=== PATIENT | male | born 1965 | race Caucasian/White ===

== ENCOUNTER 2020-06-27 07:31 | Emergency (ER) | payer OTHER, SELFPAY ==
[2020-06-27] VITALS (22 sets, daily range): BP systolic 143–190; BP diastolic 86–113; PULSE 69–89; RESP 15–25; TEMP 36.3; O2SAT 91–98
--- NOTE | ~2020-06-27 | CT_ITS ---
EXAMINATION: CTA chest PE protocol DATE: 06/27/2020 11:02 INDICATION: Hemoptysis. History of COPD. TECHNIQUE: Computed tomography angiography (CTA) of the chest was performed with 100 mL Omnipaque-350 intravenous contrast timed to evaluate the pulmonary arteries. Coronal maximum intensity projection 3D-reconstructions were created by the technologist. Automated exposure control and iterative reconst ruction technique were employed. Exam dose: 1127.14 mGy-cm total exam DLP. COMPARISON: 06/27/2022 view chest FINDINGS: There is moderate diagnostic contrast enhancement of the pulmonary arteries and no evidence of pulmonary embolism. No thoracic aortic aneurysm or dissection. Normal heart size. Trace pericardial fluid. No hilar or mediastinal mass lesion or lymphadenopathy. 4.5 mm nodule of the lingula (series 4 image 68). Mild emphysematous changes are noted. No pulmonary infiltrate or consolidation is detected. There is mild discoid atelectasis or scarring o f the middle lobe and lingula. Small bilateral foramen of [place] fat-containing hernias. Normal adrenal gland morphology. No suspicious osteolytic or osteoblastic lesions are noted. IMPRESSION: No evidence of pulmonary embolism Mild emphysema 4.5 mm lingular pulmonary nodule; consider [address] follow-up Reviewed, dictated and finalized at [facility] Reviewed, dictated and finalized at [facility].
--- NOTE | ~2020-06-27 | XR_ITS ---
EXAMINATION: XR chest 2V DATE: 06/27/2020 09:11 INDICATION: Cough and shortness of breath. TECHNIQUE: PA and lateral views of the chest were obtained. COMPARISON: Chest radiograph dated 02/02/2016 FINDINGS: Unchanged mild atelectasis/scarring at the left lung base. No new airspace opacities, pulmonary edema , pleural effusion or pneumothorax. Heart size is normal with small bilateral paracardial fat pads. M ild thoracic spondylosis. IMPRESSION: 1. Mild left basilar atelectasis/scarring. Reviewed, dictated and finalized at [facility].
--- NOTE | 2020-06-27 07:33 | ED.GENADULT ---
HPI - General Adult General Chief complaint: Upper Respiratory Infection Stated complaint: coughing up blood Time Seen by Provider: 06/27/20 07:33 Source: patient Mode of arrival: ambulatory Limitations: no limitations History of Present Illness HPI narrative: Patient is a 55-year-old male with a history of hypertension, coronary artery disease, COPD who presents for evaluation hemoptysis. Patient states that this morning he noticed his productive cough was red and resembled blood. He denies any streaking or large blood clots, but states that the sputum overall was red. He denies any current fever, chills, congestion. No increased sputum production. No forceful coughing. No current shortness of breath, but continuously struggles with shortness of breath with exertion. He denies lower leg swelling or calf pain. No recent sick contacts. No chest or abdominal pain. No nausea or vomiting. He is not on any anticoagulation. He states most of his physicians are at [facility]. Patient denies any history of cancer in himself, no recent unintended weight loss. Related Data Home Medications Medication Instructions Recorded Confirmed amlodipine 5 mg PO DAILY 06/27/20 aspirin 81 mg PO DAILY 06/27/20 atorvastatin 10 mg PO DAILY 06/27/20 lisinopril 20 mg PO DAILY 06/27/20 Allergies Allergy/AdvReac Type Severity Reaction Status Date / Time No Known Allergies Allergy Unknown Unverified 02/02/16 15:25 Review of Systems Review of Systems: Narrative: CONSTITUTIONAL: Denies fever, chills, or sweats. ENT: Denies rhinorrhea, congestion, sore throat, or otalgia. CARDIOVASCULAR: Denies chest pain, or edema. RESPIRATORY: Reports chronic cough and dyspnea GASTROINTESTINAL: Denies abdominal pain, nausea, vomiting, or diarrhea. GENITOURINARY: Denies dysuria or hematuria. SKIN: Denies rash or itching. MUSCULOSKELETAL: Denies back pain, joint pain, or myalgia. NEUROLOGIC: Denies headache, numbness, or weakness. [facility] Past Medical History Medical History COPD (chronic obstructive pulmonary disease) Hyperlipidemia Hypertension Social History Social History (Updated 06/27/20 @ 07:57 by Leah Shaikh MD) Smoking status: Current every day smoker Tobacco type: cigarettes Alcohol intake: current Alcohol use details: Social Substance use: current Substance use type: marijuana Living arrangements: with family Gender identity (if verbalized by the patient): Male Exam Narrative: Exam Narrative: GENERAL: Awake, alert, conversant, no acute distress HEAD: Normocephalic, atraumatic. EYES: PERRLA and EOMI. ENT: Nares clear, no rhinorrhea or epistaxis. Mucous membranes moist. NECK: Supple. CHEST: No respiratory distress, breathing even and non labored, expiratory wheezing in both lung lisa bilaterally, decreased aeration at the bases HEART: Regular rate, sinus rhythm ABDOMEN: Obese, non distended, non tender EXTREMITIES: Normal range of motion. No edema. SKIN: Warm, dry, no rash. NEURO:No focal deficits. Alert and oriented x3 Course Vital Signs Vital signs: Vital Signs Pulse Rate 80 06/27/20 07:44 Respiratory Rate 20 06/27/20 07:44 Blood Pressure 190/113 H 06/27/20 07:44 Pulse Oximetry 94 06/27/20 07:44 Temperature 36.3 C L 06/27/20 07:46 Pulse Rate 73 06/27/20 12:25 Respiratory Rate 16 06/27/20 12:25 Blood Pressure 143/86 H 06/27/20 12:25 Pulse Oximetry 92 06/27/20 12:25 Medical Decision Making MDM Narrative Medical decision making narrative: Patient presented for evaluation of hemoptysis. At the time of assessment, patient is hypertensive, he does have a history of this. Patient is otherwise stable, does have findings consistent with COPD with expiratory wheezing on exam, patient is in any respiratory distress. Laboratory results show no anemia. No thrombocytopenia. Chest x-ray shows no evidence of mass.
--- NOTE | 2020-06-27 07:53 | ECG_ITS ---
Measurements Intervals [place] Rate: 70 P: 17 FL: 139 QRS: -33 QRSD: 102 T: 56 QT: 404 QTc: 437 Interpretive Statements SINUS RHYTHM LEFT AXIS DEVIATION INCOMPLETE RIGHT BUNDLE BRANCH BLOCK DELAYED PRECORDIAL R/S TRANSITION BORDERLINE ECG Electronically Signed On 06-27-2020 8:24:51 CDT by Cristo Edgar D.O.
[2020-06-27 08:14] LABS: Basophils Absolute Auto 0.1 K/mm3 (0.0-0.1); Basophils Percent Auto 0.8 % (0.2-1.2); Eosinophils Absolute Auto 0.4 K/mm3 (0-0.3); Eosinophils Percent Auto 4.9 % (0-4.4); Hematocrit 50.6 % (42.0-52.0); Hemoglobin 17.1 g/dL (14.0-18.0); Immature Granulocyte Absolute 0.04 K/mm3 (0.00-0.031); Immature Granulocyte Percent A 0.5 % (0-0.5); Lymphocytes Absolute Auto 3.07 K/mm3 (0.9-3.2); Lymphocytes Percent Auto 35.2 % (18.3-44.2); Mean Corpuscular HGB Conc 33.8 g/dl (32-36); Mean Corpuscular Hemoglobin 31.4 pg (26-34); Mean Platelet Volume 11.6 fl (7.4-10.4); Monocytes Absolute Auto 0.8 K/mm3 (0.1-0.6); Monocytes Percent Auto 9.1 % (2.6-8.5); Neutrophils Absolute Auto 4.3 K/mm3 (1.3-6.7); Neutrophils Percent Auto 49.5 % (45.5-73.1); Platelet Count Result 176 k/mm3 (150-375); Red Blood Count 5.44 M/mm3 (4.6-6.20); Red Cell Distribution Width 13.2 % (11.5-14.5); White Blood Count 8.7 K/mm3 (4.5-10.0)
[2020-06-27] MEDS: ALBUTEROL SULFATE NEB 2.5 MG/0.5 ML INH 5 MG INHALATION (08:15)
[2020-06-27] MEDS: IPRATROPIUM BR 0.02% INH SOLN 0.5 MG/2.5 ML VIAL INHALATION (08:15)
[2020-06-27 08:43] LABS: INR 0.9; Prothrombin Time 11.6 Seconds (11.1-14.7)
[2020-06-27 08:44] LABS: Partial Thromboplastin Time 25.8 SECONDS (22.3-36.8)
[2020-06-27 08:46] LABS: D Dimer 0.43 ug/mL (<0.48)
--- NOTE | 2020-06-27 08:59 | PC.NURSE ---
Labs redrawn due to hemolysis.
[2020-06-27 09:13] LABS: Anion Gap 8 mmol/L (8-16); Blood Urea Nitrogen 15 mg/dL (9-20); Calcium 8.7 mg/dL (8.4-10.2); Carbon Dioxide 29 mmol/L (22-30); Chloride 102 mmol/L (98-107); Estimated CRCL calculation 114 ml/min; Estimated Glomerular Filt Rate > 60; Glucose 133 mg/dL (75-110); Potassium 3.8 mmol/L (3.4-5.0); Sodium 139 mmol/L (137-145)
[2020-06-27 09:26] LABS: NT Pro B Type Natriuretic Pept 62 PG/ML (5-100); Troponin I < 0.012 ng/mL (0.000-0.034)
--- NOTE | 2020-06-27 10:01 | PC.NURSE ---
Pt ambulatory around ED nurses station and back to ED Rm 11 (approx 50 meters). Pt c/o slight shortness of breath with ambulating. Pulse oximetry 90-91& and heart rate 90's as well. Dr. Shaikh made aware.
--- NOTE | 2020-06-27 10:48 | PC.NURSE ---
Awaiting CTA testing. Pt status unchanged at present.
--- NOTE | 2020-06-27 11:33 | PC.NURSE ---
Report to SAMUEL Slaughter, to continue care.
== END 2020-06-27 12:40 | disposition home or self-care (01) ==
PROVIDERS: Emergency Provider Emergency Medicine; PCP Family Medicine
DX: J44.1 Chronic obstructive pulmonary disease with (acute) exacerbation (principal); R04.2 Hemoptysis; I10 Essential (primary) hypertension; I25.10 Atherosclerotic heart disease of native coronary artery without angina pectoris; E78.5 Hyperlipidemia, unspecified; Z79.82 Long term (current) use of aspirin; F17.210 Nicotine dependence, cigarettes, uncomplicated; I45.10 Unspecified right bundle-branch block
CPT/HCPCS: 36415; 71046; 71275; 80048; 83880; 84484; 85025; 85380; 85610; 85730; 93005; 94640; 99284; Q9967

== ENCOUNTER 2020-09-17 06:44 | Outpatient (NON) | payer OTHER, SELFPAY ==
[2020-09-18 22:25] LABS: SARS-CoV-2 RNA PCR Negative
== END 2020-09-17 06:45 ==
LOC: ANHCOVIDDT 06:46
PROVIDERS: PCP Family Medicine; Visit Provider Family Medicine
DX: B34.9 Viral infection, unspecified (principal); Z20.828 Contact with and (suspected) exposure to other viral communicable diseases
CPT/HCPCS: 87635; C9803; U0003

== ENCOUNTER 2021-04-01 23:00 | Emergency (ER) | payer OTHER, SELFPAY ==
--- NOTE | ~2021-04-01 | CT_ITS ---
EXAMINATION: CT abdomen pelvis wo con DATE: 04/02/2021 00:38 INDICATION: Diarrhea. Low abdominal pain. TECHNIQUE: Computed tomography (CT) of the abdomen and pelvis was performed without intravenous contr ast. Automated exposure control and iterative reconstruction technique were employed. The dose-length product was 1621.85 mGy-cm. COMPARISON: CT abdomen and pelvis 03/17/2013 FINDINGS: The visualized portions of the lung bases demonstrate mild atelectasis. No pleural effusion . The heart size is normal. No pericardial effusion. The liver, gallbladder, spleen, pancreas, adrena l glands, and kidneys are normal. There is no urolithiasis. There is diverticulosis of the colon with out evidence of diverticulitis. There are no dilated loops of bowel. The appendix is normal. There is an umbilical hernia containing fat. There are no pathologically enlarged lymph nodes. There is no fr ee intraperitoneal fluid. There is mild thoracolumbar spondylosis. IMPRESSION: 1. Umbilical hernia containing fat. Reviewed, dictated and finalized at [facility].
[2021-04-01 23:01] VITALS: BP 178/92; PULSE 89; RESP 26; TEMP 36.4; O2SAT 94
--- NOTE | 2021-04-01 23:41 | ED.GENADULT ---
HPI - General Adult General Chief complaint: Unspecified Stated complaint: bad pain in my lower back with diarrhea Time Seen by Provider: 04/01/21 23:13 Source: RN notes reviewed History of Present Illness HPI narrative: Patient presents to emergency department from home for lower back pain and diarrhea. Patient states proximally 1 week ago he developed pain in his bilateral lower back states he has had a history of recurrent lower back problems for the past several years states he usually go away after 1 to 2 days he states this episode is continued for the past week states pain is worse with twisting and bending pain does not radiate he denies any numbness or tingling in the lower extremities or bowel or bladder incontinence he states he also developed diarrhea at this time which she continues to have is present to 3 loose stools a day denies any fevers or chills chest pain shortness of breath abdominal pain nausea vomiting or any other symptoms. Denies any direct trauma or injury to the back. States he took no pain medication at home Related Data Home Medications Medication Instructions Recorded Confirmed amlodipine 5 mg PO DAILY 06/27/20 aspirin 81 mg PO DAILY 06/27/20 atorvastatin 10 mg PO DAILY 06/27/20 lisinopril 20 mg PO DAILY 06/27/20 bupropion HCl 150 mg 24 hr tablet, 150 mg PO QAM 10/10/20 extended release Allergies Allergy/AdvReac Type Severity Reaction Status Date / Time No Known Allergies Allergy Unknown Verified 04/01/21 23:04 Review of Systems Review of Systems: Narrative: Gen.: Denies fevers or chills ENT: Denies congestion Respiratory: Denies shortness of breath or cough CV: Denies chest pain or palpitations GI: Denies abdominal pain nausea, emesis reports diarrhea denies burning, urgency, frequency or hematuria Musculoskeletal: See HPI Neuro: Denies numbness, tingling, weakness or focal weakness Skin: Denies rash Except as documented, all other systems reviewed and negative [facility] Past Medical History Medical History (Updated 04/02/21 @ 02:19 by Sami Anton DO) COPD (chronic obstructive pulmonary disease) Hyperlipidemia Hypertension Social History Social History Smoking status: Current every day smoker Tobacco type: cigarettes Alcohol intake: current Alcohol use details: Social Substance use: current Substance use type: marijuana Gender identity (if verbalized by the patient): Male Exam Narrative: Exam Narrative: APPEARANCE: No acute distress, nontoxic, resting in bed Eyes: EOMI HEENT: Normocephalic, atraumatic, CV: Regular rate and rhythm without murmur RESPIRATORY: No respiratory distress. Clear to auscultation bilaterally. Abdomen: Soft and nontender, no rebound or guarding periumbilical hernia that is soft and easily reducible MUSCULOSKELETAl: Moves all extremities, no clubbing cyanosis or edema Back: No midline lumbar tenderness to palpation or step-off, tender to palpation over bilateral paravertebral muscles L3-5 , pain increased with forward flexion NEURO: Awake and alert. Following commands, speech normal, no focal deficits, muscle strength 5 out of 5 bilateral lower extremities, bilateral patellar reflex 2+ SKIN:: Warm, dry. Normal Color no rash or lesions Course Course Emergency Course: Patient refusing any IV fluids or medications will give p.o. ibuprofen Discussed with patient results of workup and diagnosis. Discussed need for follow-up with primary care, proper use of medication, and reasons to return to the emergency department. Patient understands and agrees to current treatment plan Vital Signs Vital signs: Vital Signs Temperature 97.5 F L 04/01/21 23:01 Pulse Rate 89 04/01/21 23:01 Respiratory Rate 26 H 04/01/21 23:01 Blood Pressure 178/92 H 04/01/21 23:01 Pulse Oximetry 94 04/01/21 23:01 Temperature 97.5 F L 04/01/21 23:01 Pulse Rate 80 04/02/21 01:51
[2021-04-02 00:13] LABS: Basophils Absolute Auto 0.1 K/mm3 (0.0-0.1); Basophils Percent Auto 0.6 % (0.2-1.2); Eosinophils Absolute Auto 0.3 K/mm3 (0-0.3); Eosinophils Percent Auto 3.6 % (0-4.4); Hemoglobin 16.2 g/dL (14.0-18.0); Immature Granulocyte Absolute 0.02 K/mm3 (0.00-0.031); Immature Granulocyte Percent A 0.2 % (0-0.5); Lymphocytes Absolute Auto 2.33 K/mm3 (0.9-3.2); Mean Corpuscular HGB Conc 32.4 g/dl (32-36); Mean Corpuscular Hemoglobin 30.6 pg (26-34); Mean Corpuscular Volume 94.5 fl (80-100); Mean Platelet Volume 11.2 fl (7.4-10.4); Monocytes Absolute Auto 0.9 K/mm3 (0.1-0.6); Monocytes Percent Auto 10.4 % (2.6-8.5); Neutrophils Percent Auto 58.2 % (45.5-73.1); Platelet Count Result 185 k/mm3 (150-375); Red Blood Count 5.29 M/mm3 (4.6-6.20); Red Cell Distribution Width 13.2 % (11.5-14.5); White Blood Count 8.6 K/mm3 (4.5-10.0)
[2021-04-02 00:21] LABS: Lipase 94 U/L (23-300)
[2021-04-02 00:22] LABS: Alanine Aminotransferase 21 U/L (4-50); Albumin Level 4.1 g/dL (3.5-5.1); Alkaline Phosphatase 82 U/L (38-126); Anion Gap 10 mmol/L (8-16); Aspartate Amino Transferase 22 U/L (17-59); Bilirubin,Total 0.3 mg/dL (0.2-1.3); Blood Urea Nitrogen 17 mg/dL (9-20); Calcium 8.9 mg/dL (8.4-10.2); Carbon Dioxide 24 mmol/L (22-30); Chloride 105 mmol/L (98-107); Estimated CRCL calculation 145 ml/min; Estimated Glomerular Filt Rate > 60; Glucose 144 mg/dL (75-110); Sodium 139 mmol/L (137-145)
--- NOTE | 2021-04-02 00:24 | PC.NURSE ---
Pt ambulatory to ED c/o lower back pain that is worse with movement and changing position. pt also c/o diarrhea that has been constant with the lower back pain x 1 week. pt declines IV placement at this time. pt declines pain medication at this time. call light in reach.
[2021-04-02 00:27] LABS: INR 0.9; Prothrombin Time 12.4 Seconds (11.1-14.7)
[2021-04-02 01:51] VITALS: BP 154/89; PULSE 80; RESP 20; O2SAT 94
[2021-04-02 02:02] LABS: Add Urine Microscopic? NO; Appearance Urine Clear (Clear); Bilirubin Urine Negative (Negative); Blood Urine Negative (Negative); Color Urine Yellow (Yellow); Glucose Urine UA Negative (Negative); Ketones Urine Negative (Negative); Leukocyte Esterase Ur Negative LEU/UL (Negative); Nitrate Urine Negative (Negative); Protein Urine Negative (Negative); Specific Grav Ur 1.024 (1.001-1.035); Urobilinogen Urine Negative mg/dL (<2.0)
[2021-04-02] MEDS: IBUPROFEN 600 MG TABLET PO (02:40)
== END 2021-04-02 02:46 | disposition home or self-care (01) ==
PROVIDERS: Emergency Provider Emergency Medicine; PCP Family Medicine
DX: M54.5 Low back pain (principal); R19.7 Diarrhea, unspecified; J44.9 Chronic obstructive pulmonary disease, unspecified; E78.5 Hyperlipidemia, unspecified; I10 Essential (primary) hypertension; F17.210 Nicotine dependence, cigarettes, uncomplicated; Z79.82 Long term (current) use of aspirin; K42.9 Umbilical hernia without obstruction or gangrene
CPT/HCPCS: 36415; 74176; 80053; 81003; 83690; 85025; 85610; 85730; 99284; A9270

== ENCOUNTER 2021-04-06 20:26 | Emergency (ER) | payer OTHER, SELFPAY ==
[2021-04-06 20:36] VITALS: BP 182/100; PULSE 78; RESP 18; TEMP 36.9; O2SAT 98
[2021-04-06 21:46] VITALS: BP 165/97; PULSE 76; RESP 16; O2SAT 97
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
[2021-04-06] MEDS: oxyCODONE/ACETAMINOPHEN (*CRX) 5-325 MG TABLET 1 TABLET PO (22:45)
== END 2021-04-06 22:48 | disposition home or self-care (01) ==
LOC: ANHED 22:17
PROVIDERS: Emergency Provider Nurse Practitioner; PCP Family Medicine
DX: M54.5 Low back pain (principal); J44.9 Chronic obstructive pulmonary disease, unspecified; E78.5 Hyperlipidemia, unspecified; I10 Essential (primary) hypertension; F17.210 Nicotine dependence, cigarettes, uncomplicated; Z79.82 Long term (current) use of aspirin
CPT/HCPCS: 99283; A9270